=== PATIENT | male | born 1980 | race Caucasian/White ===

== ENCOUNTER 2017-03-20 11:31 | Emergency (ER) | payer BC, OTHER ==
[2017-03-20 11:38] VITALS: BP 121/78
--- NOTE | 2017-03-20 13:13 | UC ---
Respiratory Complaint HPI - HPI Summary HPI Summary: Patient presents to the with CC of cough and congestion x 10 days. He denies production with cough. Hx of bronchitis. Denies smoking history. Patient notes to sore throat with cough, but denies strep throat history. He endorses sick contacts, but no flu exposure. Denies flu vaccine this year. Endorses post nasal drip and SOB. hx of asthma. Denies taking any medications and allergy to amoxicillin. - History of Current Complaint Chief Complaint: UCRespiratory Stated Complaint: RESP ISSUE Time Seen by Provider: 03/20/17 12:35 Hx Obtained From: Patient Onset/Duration: Sudden Onset Timing: Constant Severity Initially: Mild Severity Currently: Mild Pain Intensity: 2 Pain Scale Used: 0-10 Numeric Character: Cough: Nonproductive Aggravating Factors: Allergens, Exertion Alleviating Factors: Bronchodilator Associated Signs And Symptoms: Positive: Dyspnea, URI, Nasal Congestion, Sinus Discomfort - Risk Factors Pulmonary Embolism Risk Factors: Negative Cardiac Risk Factors: Negative Pseudomonas Risk Factors: Negative Tuberculosis Risk Factors: Negative - Allergies/Home Medications Allergies/Adverse Reactions: Allergies Allergy/AdvReac Type Severity Reaction Status Date / Time Amoxicillin Allergy Hives Verified 03/20/17 11:38 PMH/Surg Hx/FS Hx/Imm Hx Previously Healthy: Yes - Surgical History Surgical History: Yes Surgery Procedure, Year, and Place: ACL right - Family History Known Family History: Positive: Unknown - Social History Occupation: Employed Full-time Alcohol Use: Occasionally Substance Use Type: None Smoking Status (MU): Never Smoked Tobacco Review of Systems Constitutional: Fever, Fatigue Eyes: Negative ENT: Sore Throat, Nasal Discharge, Sinus Congestion Respiratory: Shortness Of Breath, Cough Gastrointestinal: Negative Motor: Negative Neurovascular: Negative Musculoskeletal: Negative Neurological: Negative Is Patient Immunocompromised?: No All Other Systems Reviewed And Are Negative: Yes Physical Exam Triage Information Reviewed: Yes Appearance: Well-Appearing, No Pain Distress, Well-Nourished Vital Signs: Initial Vital Signs Temp 99.6 F 03/20/17 11:34 Pulse 84 03/20/17 11:34 Resp 20 03/20/17 11:34 BP 121/78 03/20/17 11:34 Pulse Ox 100 03/20/17 11:34 Vital Signs Reviewed: Yes Eye Exam: Normal Eyes: Positive: Conjunctiva Clear ENT: Positive: Pharynx normal, Nasal congestion, Nasal drainage, TMs normal. Negative: TM bulging, Tonsillar swelling, Tonsillar exudate, Muffled/hoarse voice Dental Exam: Normal Neck exam: Normal Neck: Positive: Supple, No Lymphadenopathy Respiratory Exam: Normal Respiratory: Positive: Chest non-tender, Lungs clear, Normal breath sounds, No respiratory distress, No accessory muscle use. Negative: Respiratory distress, Decreased breath sounds, Accessory muscle use Cardiovascular Exam: Normal Cardiovascular: Positive: RRR, No Murmur Musculoskeletal Exam: Normal Musculoskeletal: Positive: Strength Intact Neurological Exam: Normal Neurological: Positive: Alert, Muscle Tone Normal Psychological: Positive: Normal Response To Family Skin Exam: Normal Diagnostic Evaluation - Laboratory O2 Sat by Pulse Oximetry: 100 Respiratory Course/Dx - Course Course Of Treatment: Patient evaluated for chest congestion and cough x 10 days with hx of bronchitis. Lungs CTA. No production noted with cough. Patient is given azithromycin, albuterol inhaler and cough medication. Medications were reviewed with patient during this visit. Encouraged to follow up with PCP in 1- 2 days for worsening symptoms. - Differential Dx/Diagnosis Differential Diagnosis/HQI/PQRI: Bronchitis, Lower Resp Infection Provider Diagnoses: Bronchitis Discharge - Discharge Plan Condition: Stable Disposition: HOME Prescriptions: Albuterol HFA INHALER* [Ventolin HFA Inhaler*] 1 puff INH Q4H PRN #1 mdi PRN Reason: Cough Azithromyxin BEAR (NF) [Z-Bear (Zithromax) 250 mg tabs #6] 2 tab PO .TODAY, THEN 1 DAILY #6 tab guaiFENesin/CODIEN 100MG-10MG* [Robitussin AC 100Mg-10Mg*] 10 ml PO BEDTIME # 120 udc MDD 10 Patient Education Materials: Acute Bronchitis (ED), Acute Cough (ED) Additional Instructions: Follow up with PCP as needed If you develop any worsening symptoms or your symptoms fail to improve, return to the honey, tea, lemon, warm liquids and rest Robitussin with codeine up to every 4 hours as needed for cough Azithromycin - take 2 today and 1 daily for 4 days Albuterol inhaler as needed for cough
== END 2017-03-20 13:15 | disposition home or self-care (01) ==
LOC: UCEAST 11:31
DX: J40 Bronchitis, not specified as acute or chronic (principal)
CPT/HCPCS: 99212; G0463